=== PATIENT | female | born 1975 | race Two or more races ===

== ENCOUNTER 2019-05-25 15:43 | Emergency (ER) | payer MEDICAID ==
[~2019-05-25] VITALS: Ht 177.8 cm; Wt 72.6 kg
[2019-05-25 16:10] VITALS: BP 95/75
== END 2019-05-26 00:21 | disposition left against medical advice (07) ==
LOC: ER 15:43
DX: R19.7 Diarrhea, unspecified (principal); R42 Dizziness and giddiness; R11.2 Nausea with vomiting, unspecified; F17.210 Nicotine dependence, cigarettes, uncomplicated; Z90.49 Acquired absence of other specified parts of digestive tract